=== PATIENT | female | born 1985 | race Caucasian/White ===

== ENCOUNTER 2021-03-30 11:45 | Emergency (ER) | payer SELFPAY ==
[~2021-03-30] VITALS: Ht 165.1 cm; Wt 70.0 kg
[2021-03-30] MEDS ORDERED: ONDANSETRON 4MG ODT PO ONE (12:15)
[2021-03-30 12:21] VITALS: BP 113/84
== END 2021-03-30 12:37 | disposition home or self-care (01) ==
LOC: ER 12:34
DX: E86.0 Dehydration (principal)
CPT/HCPCS: 99283; Q0162